=== PATIENT | male | born 1985 | race Caucasian/White ===

== ENCOUNTER 2017-05-29 19:40 | Emergency (ER) | payer SELFPAY ==
[2017-05-29 20:11] VITALS: BP 146/71
--- NOTE | 2017-05-29 21:07 | UC ---
Respiratory Complaint HPI - HPI Summary HPI Summary: Pt c/o right side chest pain and cough. Martínez worsens with deep breaths. Denies , fever, SOB, nasal or chest congestion. X 3 days. - History of Current Complaint Chief Complaint: UCRespiratory Stated Complaint: COUGH,TIGHTNESS ON RIGHT - NOT SOB Time Seen by Provider: 05/29/17 20:44 Hx Obtained From: Patient Onset/Duration: Sudden Onset, Lasting Days, Still Present Timing: Constant Severity Currently: Mild Pain Intensity: 4 Character: Cough: Nonproductive Aggravating Factors: Deep Breaths Alleviating Factors: Spontaneous Resolution Associated Signs And Symptoms: Positive: Negative - Risk Factors Pulmonary Embolism Risk Factors: Negative Cardiac Risk Factors: Negative Pseudomonas Risk Factors: Negative Tuberculosis Risk Factors: Negative - Allergies/Home Medications Allergies/Adverse Reactions: Allergies Allergy/AdvReac Type Severity Reaction Status Date / Time amoxicillin Allergy Rash Verified 05/29/17 20:14 Penicillins Allergy Rash Verified 05/29/17 20:14 PMH/Surg Hx/FS Hx/Imm Hx Previously Healthy: Yes - Surgical History Surgical History: Yes Surgery Procedure, Year, and Place: c6 fusion 2006 with ronny and plates. APPENDECTOMY - 05/07/2011, TONSILLECTOMY - Family History Known Family History: Positive: Cardiac Disease Family History: NON CONTRIBUTORY - Social History Occupation: Employed Full-time Lives: With Family Alcohol Use: None Substance Use Type: None Smoking Status (MU): Never Smoked Tobacco Have You Smoked in the Last Year: No - Immunization History Most Recent Tetanus Shot: 2013 OR 2014 Review of Systems Constitutional: Negative Skin: Negative Eyes: Negative ENT: Negative Respiratory: Cough, Other - chest pain, dyspnea Cardiovascular: Negative Gastrointestinal: Negative Genitourinary: Negative Motor: Negative Neurovascular: Negative Musculoskeletal: Negative Neurological: Negative Psychological: Negative Is Patient Immunocompromised?: No All Other Systems Reviewed And Are Negative: Yes Physical Exam Triage Information Reviewed: Yes Appearance: Well-Appearing Vital Signs: Initial Vital Signs Temp 98.8 F 05/29/17 20:07 Pulse 67 05/29/17 20:07 Resp 17 05/29/17 20:07 BP 146/71 05/29/17 20:07 Pulse Ox 97 05/29/17 20:07 Vital Signs Reviewed: Yes Eye Exam: Normal ENT Exam: Normal Dental Exam: Normal Neck exam: Normal Respiratory Exam: Normal Cardiovascular Exam: Normal Musculoskeletal Exam: Normal Neurological Exam: Normal Psychological Exam: Normal Skin Exam: Normal UC Diagnostic Evaluation - Laboratory O2 Sat by Pulse Oximetry: 97 - Radiology Radiology Interpretation Completed By: Radiologist Respiratory Course/Dx - Differential Dx/Diagnosis Differential Diagnosis/HQI/PQRI: Bronchitis Provider Diagnoses: chest wall pain Discharge - Sign-Out/Discharge Documenting (check all that apply): Discharge - Discharge Plan Condition: Stable Disposition: HOME Prescriptions: predniSONE TAB* [Deltasone TAB*] 20 mg PO DAILY #4 tab Patient Education Materials: Chest Wall Pain (ED) Referrals: Efrain Sheffield MD [Primary Care Provider] - If Needed - Billing Disposition and Condition Condition: STABLE Disposition: HOME
--- NOTE | 2017-05-29 21:07 | RAD ---
INDICATION: Chest pain and cough. COMPARISON: Comparison is made with a prior chest x-ray study from October 22, 2006. TECHNIQUE: Dual-energy PA and lateral views of the chest were obtained. FINDINGS: The heart is within normal limits in size. Mediastinal and hilar contours appear within normal limits. The lungs are clear. No pleural effusion is present. IMPRESSION: NO EVIDENCE FOR ACTIVE CARDIOPULMONARY DISEASE.
== END 2017-05-29 21:25 | disposition home or self-care (01) ==
LOC: UCCORT 19:40
DX: R07.89 Other chest pain (principal); Z88.0 Allergy status to penicillin
CPT/HCPCS: 71046; 99212; G0463

== ENCOUNTER 2018-07-18 16:21 | Emergency (ER) | payer SELFPAY ==
[2018-07-18 16:35] VITALS: BP 150/97
--- NOTE | 2018-07-18 16:49 | UC ---
UC General HPI - HPI Summary HPI Summary: 33-year-old male 33-year-old male comes in with a multitude of complaints. 3 days ago he started with a frontal headache. He is taken ibuprofen and naproxen has not helped with the headache. Last 1 day started feeling more ill with sore throat pain on the sides of his neck nausea bilateral flank pain bodyaches fatigue and fever. He does have a minimal amount of discomfort in the pelvis. No dysuria no difficulty with urination. - History of Current Complaint Chief Complaint: UCGeneralIllness Stated Complaint: FEVER,MARCH,URINARY,ST,FATIGUE Time Seen by Provider: 07/18/18 16:31 Pain Intensity: 6 - Allergy/Home Medications Allergies/Adverse Reactions: Allergies Allergy/AdvReac Type Severity Reaction Status Date / Time amoxicillin Allergy Rash Verified 07/18/18 16:31 Penicillins Allergy Rash Verified 07/18/18 16:31 Home Medications: Home Medications Ibuprofen TAB* [Motrin TAB* 600 MG] 600 mg PO Q6H PRN 07/18/18 [History Confirmed 07/18/18] PMH/Surg Hx/FS Hx/Imm Hx Previously Healthy: Yes - Surgical History Surgical History: Yes Surgery Procedure, Year, and Place: c6 fusion 2006 with ronny and plates. APPENDECTOMY - 05/07/2011, TONSILLECTOMY - Family History Known Family History: Positive: Cardiac Disease Family History: NON CONTRIBUTORY - Social History Alcohol Use: None Substance Use Type: None Smoking Status (MU): Never Smoked Tobacco Have You Smoked in the Last Year: No - Immunization History Most Recent Tetanus Shot: 2013 OR 2014 Review of Systems All Other Systems Reviewed And Are Negative: Yes Constitutional: Positive: Fever, Fatigue Skin: Positive: Negative Eyes: Positive: Negative ENT: Positive: Sore Throat Respiratory: Positive: Negative Cardiovascular: Positive: Negative Gastrointestinal: Positive: Abdominal Pain, Nausea Genitourinary: Positive: Negative Motor: Positive: Negative Neurovascular: Positive: Negative Musculoskeletal: Positive: Arthralgia, Myalgia Neurological: Positive: Headache Psychological: Positive: Negative Is Patient Immunocompromised?: No Physical Exam Triage Information Reviewed: Yes Appearance: No Pain Distress, Well-Nourished, Ill-Appearing - mild Vital Signs: Initial Vital Signs Temp 98.3 F 07/18/18 16:31 Pulse 103 07/18/18 16:31 Resp 16 07/18/18 16:31 BP 150/97 06/09/19 16:31 Pulse Ox 98 07/18/18 16:31 Vital Signs Reviewed: Yes Eye Exam: Normal Eyes: Positive: Conjunctiva Clear ENT: Positive: Pharyngeal erythema, TMs normal, Uvula midline. Negative: Muffled voice, Hoarse voice Neck: Positive: Supple, Tenderness @ - b/l posterior. No posterior midline tenderness. Respiratory: Positive: Lungs clear, Normal breath sounds, No respiratory distress, Other: - No thoracic tenderness Cardiovascular: Positive: RRR Abdomen Description: Positive: CVA Tenderness (R), CVA Tenderness (L) Musculoskeletal: Positive: Strength Intact, ROM Intact, Other: - No midline lumbar tenderness. Neurological: Positive: Alert Psychological Exam: Normal Psychological: Positive: Normal Response To Family, Age Appropriate Behavior Skin Exam: Normal Course/Dx - Course Course Of Treatment: The rapid influenza and strep were both negative. The urine did have a trace of blood in it and some protein and bilirubin. Leukocytes were negative. On examination patient has bilateral flank tenderness but he does not have suprapubic tenderness or fullness. I would expect an outlet obstruction either in the prostate or the urethra to give an enlarged bladder also. A kidney stone should present with one-sided pain not bilateral. Initial symptoms were a headache and then sore throat bodyaches bilateral flank pain giving more of an appearance of her overall infection. Therefore at this time I did not obtain a CT the abdomen and pelvis. We do not have ultrasound available here at this time. CBC CMP and lipase and urine culture and Lyme screen of all been ordered. Going to treat with Bactrim for the possibility of occult prostatitis. I discussed with the patient and his partner that if he did not improve or worsened that they should go to the emergency department for further evaluation and care. - Diagnoses Provider Diagnosis: Fever, Flank pain, Headache, Myalgia Discharge - Sign-Out/Discharge Documenting (check all that apply): Patient Departure All imaging exams completed and their final reports reviewed: No Studies - Discharge Plan Condition: Stable Disposition: HOME Prescriptions: Sulfamethox/Trimethoprim DS* [Bactrim DS 800/160 TAB*] 1 tab PO BID #20 tab Patient Education Materials: Fever in Adults (ED), Acute Headache (ED), Musculoskeletal Pain (ED), Flank Pain (ED) Forms: *Work Release Referrals: Niziol,Efrain S, MD [Primary Care Provider] - Additional Instructions: FOLLOW UP WITH YOUR DOCTOR IF NOT COMPLETELY IMPROVED. GO TO THE EMERGENCY DEPARTMENT IF YOUR CONDITION WORSENS; CONTINUED FEVERS, YOU FEEL LIKE PASSING OUT, CONFUSION, STIFF NECK AND/OR BACK, CONTINUED OR WORSE FLANK OR ABDOMINAL PAIN OR ANY QUESTIONS OR CONCERNS. - Billing Disposition and Condition Condition: STABLE Disposition: Home
[2018-07-18 17:04] LABS: Influenza A Molecular NEGATIVE (Negative); Influenza B Molecular NEGATIVE (Negative)
[2018-07-18] MEDS ORDERED: Sulfamethox/Trimethoprim DS 800/160* TAB PO ONE (17:46)
[2018-07-19 11:01] LABS: Hematocrit 43 % (42-52); Hemoglobin 14.7 g/dL (14.0-18.0); Mean Corpuscular HGB Conc 34 g/dL (31-36); Mean Corpuscular Hemoglobin 27 pg (27-31); Mean Corpuscular Volume 80 fL (80-94); Mean Platelet Volume 8.8 fL (7.4-10.4); Platelet Count 214 10^3/uL (150-450); Red Blood Count 5.44 10^6 /uL (4.18-5.48); Red Cell Distribution Width 14 % (10-15); White Blood Count 16.5 10^3/uL (3.5-10.8)
[2018-07-19 11:07] LABS: Albumin 4.2 g/dL (3.2-5.2); Calcium 9.6 mg/dL (8.6-10.3); Potassium 3.7 mmol/L (3.5-5.0); Total Bilirubin 0.7 mg/dL (0.2-1.0)
[2018-07-19 11:13] LABS: Albumin/Globulin Ratio 1.4 (1-3); BUN/Creatinine Ratio 12.8 (8-20); EGFR African American 125.5 (>60); EGFR Non-African American 103.7 (>60); Globulin 3.1 g/dL (2-4); Total Protein 7.3 g/dL (6.4-8.9)
[2018-07-19 11:38] LABS: ABS Lymphocytes 1.1 10^3/ul (1.0-4.8); ABS Monocytes 1.7 10^3/ul (0-0.8); ABS Neutrophils 13.6 10^3/ul (1.5-7.7); Lymphocyte % 6.5 %; Nucleated Red Blood Cells % 0.1
--- NOTE | 2018-07-21 07:15 | UC ---
- Progress Note Progress Note: Laboratory results come back from July 18, 2018. On the CBC shows an elevated white blood cell count of 16.5 thousand which is primarily made up of neutrophils which is described by the pathologist as leukocytosis with absolute neutrophilia an absolute mono cytosis indicative of acute inflammatory reactive process. Urine culture came back with no growth. Total Lyme antibiody was negative. Rapid influenza and strep all negative. CMP with LFTs essentially normal. Patient started on Bactrim. Nursing to call patient and let him know about the results and to check and see if he is feeling better or not. If the patient's improved he can continue the Bactrim. If he is worse or not improved he should get reevaluated most probably the emergency department. Course/Dx - Diagnoses Provider Diagnoses: Fever, Flank pain, Headache, Myalgia Discharge - Sign-Out/Discharge Documenting (check all that apply): Patient Departure All imaging exams completed and their final reports reviewed: No Studies - Discharge Plan Condition: Stable Disposition: HOME Prescriptions: Sulfamethox/Trimethoprim DS* [Bactrim DS 800/160 TAB*] 1 tab PO BID #20 tab Patient Education Materials: Fever in Adults (ED), Acute Headache (ED), Musculoskeletal Pain (ED), Flank Pain (ED) Forms: *Work Release Referrals: Efrain Sheffield MD [Primary Care Provider] - Additional Instructions: FOLLOW UP WITH YOUR DOCTOR IF NOT COMPLETELY IMPROVED. GO TO THE EMERGENCY DEPARTMENT IF YOUR CONDITION WORSENS; CONTINUED FEVERS, YOU FEEL LIKE PASSING OUT, CONFUSION, STIFF NECK AND/OR BACK, CONTINUED OR WORSE FLANK OR ABDOMINAL PAIN OR ANY QUESTIONS OR CONCERNS. - Billing Disposition and Condition Condition: STABLE Disposition: Home
== END 2018-07-18 17:56 | disposition home or self-care (01) ==
LOC: UCCORT 16:21
DX: R50.9 Fever, unspecified (principal); R10.9 Unspecified abdominal pain; R51 Headache; M79.10 Myalgia, unspecified site; R11.0 Nausea; R53.83 Other fatigue; Z90.89 Acquired absence of other organs; Z88.0 Allergy status to penicillin
CPT/HCPCS: 36415; 80053; 81003; 83690; 85025; 85060; 86618; 87086; 87651; 99212; A9270-GY; G0463

== ENCOUNTER 2019-04-21 17:42 | Emergency (ER) | payer SELFPAY ==
[2019-04-21 18:25] VITALS: BP 152/86
== END 2019-04-21 18:51 | disposition left against medical advice (07) ==
LOC: UCCORT 17:42
DX: Z53.21 Procedure and treatment not carried out due to patient leaving prior to being seen by health care provider (principal)